=== PATIENT | female | born 1935 | race Caucasian/White ===

== ENCOUNTER 2019-09-14 19:26 | Inpatient (IN) | payer MEDICARE ==
[2019-09-14] MEDS ORDERED: Artificial Tear Sol 15 ML BOT EA EYE PRN (20:54)
[2019-09-14] MEDS: Senokot S 8.6-50 MG TAB PO SCH (21:52)
[2019-09-14] MEDS: Enoxaparin Sodium 40 MG/0.4 ML SYRINGE SC SCH (21:56)
[2019-09-14] MEDS: Aspirin 325 MG TAB PO SCH (21:56)
[2019-09-14] MEDS: Acetaminophen 500 MG TAB PO SCH (21:56)
[2019-09-14] MEDS: Famotidine 20 MG TAB PO SCH (21:56)
[2019-09-14] MEDS: DorzolamidE/Timolol 2%/0.5% Ophth Soln 10 ml Bottle EA EYE SCH (21:56)
[2019-09-14 22:23] VITALS: BMI 19.4
[2019-09-15] MEDS: Acetaminophen 500 MG TAB PO SCH ×4 (05:31→23:52)
[2019-09-15] MEDS: Levothyroxine Sodium 25 MCG TAB PO SCH (05:31)
[2019-09-15 06:45] LABS: Anisocytosis SLIGHT = 6-15 cells (100X) (0-5/hpf); Band 14 % (5-11); Eosinophils 3 % (0-10); Hemoglobin 14.3 g/dL (12.0-16.0); Lymphocytes 19 % (21-51); MDiff Complete? YES; Mean Corpuscular HGB CONC 29.7 g/dL (32.0-36.0); Mean Corpuscular Hemoglobin 27.3 pg (27.0-31.0); Mean Corpuscular Volume 92.2 fL (78.0-98.0); Mean Platelet Volume 10.2 fL (7.4-10.4); Monocytes 10 % (0-10); Neutrophil 53 % (42-75); Platelet Count 188 thou/uL (130-400); Platelet Morphology Comment Appears Adequate; Polychromasia SLIGHT = 2-3 cells (100X) (0-2/hpf); Red Blood Cell (RBC) Count 5.22 mill/uL (4.20-5.40); White Blood Cell (WBC) Count 7.7 thou/uL (4.8-10.8)
[2019-09-15 07:41] LABS: ALT (SGPT) 28 U/L (8-55); AST (SGOT) 46 U/L (5-34); Albumin 3.5 g/dL (3.4-4.8); Alkaline Phosphatase 65 U/L (40-110); Anion Gap 16 mmol/L (10-20); BUN (Urea Nitrogen) 11 mg/dL (9.8-20.1); Bilirubin, Total 0.7 mg/dL (0.2-1.2); Calc. Creatinine Clearance 59 mL/min (70-130); Carbon Dioxide 20 mmol/L (23-31); Chloride 98 mmol/L (98-107); Estimated GFR-MDRD Greater than 90; Globulin 2.5 g/dL (2.4-3.5); Glucose 92 mg/dL (83-110); Potassium 3.4 mmol/L (3.5-5.1); Sodium 131 mmol/L (136-145)
[2019-09-15] MEDS: Polyethylene Glycol 3350 17 GM Packet PO SCH (08:31)
[2019-09-15] MEDS: Aspirin 325 MG TAB PO SCH ×2 (08:31→21:19)
[2019-09-15] MEDS: Multivitamin W/ Minerals 1 TAB PO SCH (08:31)
[2019-09-15] MEDS: Famotidine 20 MG TAB PO SCH ×2 (08:32→21:19)
[2019-09-15] MEDS: Senokot S 8.6-50 MG TAB PO SCH ×2 (08:32→21:20)
[2019-09-15] MEDS: DorzolamidE/Timolol 2%/0.5% Ophth Soln 10 ml Bottle EA EYE SCH ×2 (08:34→21:19)
[2019-09-15] MEDS: Enoxaparin Sodium 40 MG/0.4 ML SYRINGE SC SCH ×2 (08:35→21:19)
[2019-09-15] MEDS ORDERED: Potassium Chloride 20 MEQ TAB PO SCH (09:15)
--- NOTE | 2019-09-15 10:09 | HP ---
PRINCIPAL DIAGNOSES: Right-sided femoral neck fracture, status post surgical pinning with resolving encephalopathy and COVID pneumonia for therapy. BRIEF HISTORY: This is an 83-year-old female, who sustained a fall at her living facility and noticed right hip pain. She was evaluated and admitted to the hospital with right femoral neck fracture and underwent surgical pinning. This was done on August 27. She is on partial weightbearing. She apparently did develop respiratory failure postoperatively and her COVID test came back positive around the August 29. Chest x-ray confirmed bilateral infiltrates and she was on Remdesivir, steroids, and tocilizumab. She has been weaned off her oxygen and she had a repeat swab done on the September 11 and it was negative. She has been afebrile. Currently, she also was noticed to be hyponatremic, which is chronic as long as her sodium stays around 129 to 130 that is pretty normal for her according to old records. She also was noticed to have hypokalemia, which was replaced. She is up in bed and denies any complaints. She apparently pulled her Tyler catheter out last night. She has been voiding, so I advised nursing to do bladder scans and monitor her output. 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 No family at bedside. PAST MEDICAL HISTORY: 1. Hypertension. 2. Hypothyroidism. 3. Dyslipidemia. 4. Possible gastroesophageal reflux disease. 5. Dementia. 6. Very poor vision. PAST SURGICAL HISTORY: 1. Hysterectomy. 2. section. 3. Bladder surgery. 4. Recent right femoral neck fracture pinning. PSYCHOSOCIAL HISTORY: She lives at an independent living facility. Denies any current tobacco, alcohol, or recreational drug abuse. FAMILY HISTORY: Noncontributory to current admission. ALLERGIES: SHE IS APPARENTLY ALLERGIC TO PENICILLIN AND PNEUMOCOCCAL VACCINE. REVIEW OF SYSTEMS: GENERAL: No fever, chills, or myalgia. CARDIOVASCULAR SYSTEM: Denies any chest pain, shortness of breath, palpitations, PND, orthopnea, or pedal edema. RESPIRATORY SYSTEM: Occasional cough. Denies any pleuritic-type chest pain. Denies any hemoptysis. GASTROINTESTINAL SYSTEM: Denies any nausea, vomiting, diarrhea, constipation, hematemesis, melena, or hematochezia. GENITOURINARY SYSTEM: Denies any frequency, urgency, dysuria, or hematuria. She pulled her Tyler catheter out and she apparently is voiding in her diaper. EXTREMITIES: Improving right hip and leg pain. HEENT: Denies any changes with her speech, vision, hearing, or swallowing. She has chronic poor vision. SKIN: Denies any rash. PHYSICAL EXAMINATION: GENERAL: This is a pleasant 83-year-old female, who is up in bed and being fed. She denies any questions or concerns. When I introduced myself, she acted like she knew me well. VITAL SIGNS: She is afebrile, heart rate 89, respirations 20, oxygen saturation 92% on room air, blood pressure 114/56. HEENT: Normocephalic and atraumatic. NECK: No JVD, thyromegaly, cervical lymphadenopathy, or throat exudates. No carotid bruits. CARDIOVASCULAR SYSTEM: S1 and S2 plus. RESPIRATORY SYSTEM: Normal vesicular breath sounds with occasional rhonchi. ABDOMEN: Soft, nontender. Bowel sounds heard in all quadrants. EXTREMITIES: Without cyanosis or clubbing. Trace right leg edema. Right hip incision is healthy. CENTRAL NERVOUS SYSTEM: Awake and responsive. Not oriented to place or person. Grossly nonfocal except for generalized weakness. LABORATORY DATA: Show white count of 7.7, H and H of 14.3 and 48.1. Chemistry shows a sodium of 131, potassium is slightly low at 3.4, BUN and creatinine are 11 and 0.59. IMPRESSION: 1. Recent fall and right hip fracture, status post surgical fixation. 2. Recent COVID pneumonia with time since diagnosis of 14 days, asymptomatic and afebrile for the last 3 days without any antipyretics per documentation and her COVID test was negative on the . 3. Hypertension. 4. Dyslipidemia. 5. Hypothyroidism. 6. Hypokalemia. 7. Hyponatremia. 8. Possible dementia. PLAN: 1. Continue current medications. 2. Monitor respiratory status. 3. Orthopedic precautions. 4. Heart-healthy diet. 5. DVT prophylaxis with PlexiPulses. 6. Decubitus precautions. 7. Stress ulcer prophylaxis. 8. Fall precautions. 9. Monitor cognition. 10. PT/OT eval and treat. 11. Replace potassium. 12. Routine laboratory values. 13. No family at bedside. Job ID: [id number]
[2019-09-15] MEDS: Bupropion 150 MG XL TAB PO SCH (12:42)
[2019-09-15] MEDS: TACROLIMUS EA EYE SCH ×3 (12:42→21:19)
[2019-09-16] MEDS: Acetaminophen 500 MG TAB PO SCH ×4 (05:36→23:08)
[2019-09-16] MEDS: Levothyroxine Sodium 25 MCG TAB PO SCH (05:36)
[2019-09-16] MEDS: Famotidine 20 MG TAB PO SCH ×2 (10:01→20:46)
[2019-09-16] MEDS: Multivitamin W/ Minerals 1 TAB PO SCH (10:01)
[2019-09-16] MEDS: Senokot S 8.6-50 MG TAB PO SCH ×2 (10:01→20:46)
[2019-09-16] MEDS: Aspirin 325 MG TAB PO SCH ×2 (10:01→20:45)
[2019-09-16] MEDS: Polyethylene Glycol 3350 17 GM Packet PO SCH (10:02)
[2019-09-16] MEDS: TACROLIMUS EA EYE SCH ×4 (10:02→20:46)
[2019-09-16] MEDS: DorzolamidE/Timolol 2%/0.5% Ophth Soln 10 ml Bottle EA EYE SCH ×2 (10:02→20:46)
[2019-09-16] MEDS: Enoxaparin Sodium 40 MG/0.4 ML SYRINGE SC SCH ×2 (10:02→20:45)
[2019-09-16] MEDS: DEXAMETHASONE 0.1% EA EYE SCH (10:09)
[2019-09-16] MEDS: Bupropion 150 MG XL TAB PO SCH (12:22)
--- NOTE | 2019-09-16 17:58 | PRG ---
DATE OF SERVICE: 09/16/2019 SUBJECTIVE: Ms. Tsai is resting in bed. She apparently has been more agitated this morning. She is now sleeping. Her daughter is in the room, and I had a long discussion with her daughter. She brought in a couple of her eye drops, and 2 of them we have placed as home medications. The third one has , so we are going to hold off on that. She is also not eating or drinking, and daughter states that she has lost about 20 pounds. We will add Ensure t.i.d. OBJECTIVE: VITAL SIGNS: She is afebrile. Heart rate 86, respirations 20, oxygen saturation 92% on room air, blood pressure 152/67. CARDIOVASCULAR: S1 and S2 plus. RESPIRATORY: Normal vesicular breath sounds. ABDOMEN: Soft and nontender. Bowel sounds heard in all quadrants. EXTREMITIES: Without cyanosis or clubbing. Right hip incision with dressing. CENTRAL NERVOUS SYSTEM: Pleasantly confused. IMPRESSION: 1. Hypertension. 2. Hypothyroidism. 3. Dyslipidemia. 4. Mild dementia with behavioral issues. 5. Poor vision. 6. Right hip fracture, status post surgical fixation. 7. Resolved COVID-19 infection. PLAN: 1. Continue current medications. 2. Orthopedic precautions and incision care. 3. Encourage p.o. intake. 4. Ensure supplements t.i.d. 5. DVT prophylaxis. 6. Decubitus precaution. 7. Stress ulcer prophylaxis. 8. Poor p.o. intake. 9. Recheck laboratory values. 10. PT/OT. Job ID: [id number]
[2019-09-17] MEDS: Levothyroxine Sodium 25 MCG TAB PO SCH (05:23)
[2019-09-17] MEDS: Acetaminophen 500 MG TAB PO SCH ×4 (05:23→23:31)
[2019-09-17] MEDS: Polyethylene Glycol 3350 17 GM Packet PO SCH (08:39)
[2019-09-17] MEDS: Enoxaparin Sodium 40 MG/0.4 ML SYRINGE SC SCH ×2 (08:39→20:16)
[2019-09-17] MEDS: Famotidine 20 MG TAB PO SCH ×2 (08:40→20:16)
[2019-09-17] MEDS: Aspirin 325 MG TAB PO SCH ×2 (08:40→20:15)
[2019-09-17] MEDS: Senokot S 8.6-50 MG TAB PO SCH ×2 (08:40→20:26)
[2019-09-17] MEDS: Multivitamin W/ Minerals 1 TAB PO SCH (08:41)
[2019-09-17] MEDS: TACROLIMUS EA EYE SCH ×4 (08:41→20:16)
[2019-09-17] MEDS: DEXAMETHASONE 0.1% EA EYE SCH (08:41)
[2019-09-17] MEDS: DorzolamidE/Timolol 2%/0.5% Ophth Soln 10 ml Bottle EA EYE SCH ×2 (08:44→20:16)
[2019-09-17] MEDS: Bupropion 150 MG XL TAB PO SCH (12:10)
--- NOTE | 2019-09-17 12:32 | PRG ---
DATE OF SERVICE: 09/17/2019 SUBJECTIVE: Ms. Tsai is up in bed. She is pleasantly confused. Her spouse is in the room. She apparently takes Ambien at home 5 mg at bedtime and then couple of hours later may take another 5. She is not sleeping. OBJECTIVE: CARDIOVASCULAR SYSTEM: S1 and S2 plus. RESPIRATORY SYSTEM: Normal vesicular breath sounds. ABDOMEN: Soft and nontender. Bowel sounds heard in all quadrants. EXTREMITIES: Without cyanosis or clubbing. Hip incision is healthy. VITAL SIGNS: She is afebrile, heart rate 75, respirations 18, oxygen saturation 93% on room air, blood pressure 116/81. IMPRESSION: 1. Right hip fracture, status post surgical fixation. 2. Resolved COVID pneumonia. 3. Hypertension. 4. Hypothyroidism. 5. Dyslipidemia. 6. Poor vision. 7. Gastroesophageal reflux disease. 8. Possible dementia. 9. Insomnia. PLAN: 1. Continue current medications. 2. Nutritional support. 3. Orthopedic precautions. 4. Incision care. 5. Order Ambien. 6. Physical therapy. 7. Routine laboratory values. 8. Discussed with the patient and in detail. All questions were answered. Job ID: [id number]
[2019-09-17] MEDS: Zolpidem Tartrate 5 MG TAB PO SCH (20:16)
[2019-09-17] MEDS ORDERED: Zolpidem Tartrate 5 MG TAB PO SCH (22:00)
[2019-09-18] MEDS: Levothyroxine Sodium 25 MCG TAB PO SCH (05:36)
[2019-09-18] MEDS: Acetaminophen 500 MG TAB PO SCH ×4 (05:36→23:24)
[2019-09-18] MEDS: Aspirin 325 MG TAB PO SCH ×2 (09:31→20:52)
[2019-09-18] MEDS: Senokot S 8.6-50 MG TAB PO SCH ×2 (09:31→20:52)
[2019-09-18] MEDS: Multivitamin W/ Minerals 1 TAB PO SCH (09:32)
[2019-09-18] MEDS: Enoxaparin Sodium 40 MG/0.4 ML SYRINGE SC SCH ×2 (09:32→20:52)
[2019-09-18] MEDS: Polyethylene Glycol 3350 17 GM Packet PO SCH (09:32)
[2019-09-18] MEDS: Famotidine 20 MG TAB PO SCH ×2 (09:32→20:52)
[2019-09-18] MEDS: DorzolamidE/Timolol 2%/0.5% Ophth Soln 10 ml Bottle EA EYE SCH ×2 (09:32→20:53)
[2019-09-18] MEDS: DEXAMETHASONE 0.1% EA EYE SCH (09:33)
[2019-09-18] MEDS: TACROLIMUS EA EYE SCH ×4 (09:34→21:06)
[2019-09-18] MEDS: Bupropion 150 MG XL TAB PO SCH (12:49)
--- NOTE | 2019-09-18 13:52 | PRG ---
DATE OF SERVICE: 09/18/2019 SUBJECTIVE: Ms. Tsai is resting in bed and remains confused. Her daughter is in the room. She apparently is not eating or drinking much. She is orthostatic. Family is agreeable for IV fluids, but they also understand that it is a short-term fix. Daughter also wants her to be DNR. She understands that if she stops breathing or if her heart goes into any irregular rhythm or stops breathing, we are not going to do any medicines, chest compressions, or artificial means of breathing. She also wondered if quality control engineer comes here and advise her that we unfortunately do not have an quality control engineer on-staff. She does not want to try any medicines for agitation as the patient had a bad experience with Seroquel. OBJECTIVE: VITAL SIGNS: The patient is afebrile. Heart rate is 99, blood pressure is fluctuating from 128/55 to 73/44, and oxygen saturation is 96% on room air. CARDIOVASCULAR SYSTEM: S1 and S2 plus. RESPIRATORY SYSTEM: Normal vesicular breath sounds. ABDOMEN: Soft, nontender, scaphoid. Bowel sounds heard in all quadrants. EXTREMITIES: Without cyanosis or clubbing. Right hip incision with dressing. CENTRAL NERVOUS SYSTEM: Pleasantly confused. Otherwise, generalized weakness and nonfocal. IMPRESSION: 1. Loss of vision to her eye, family states that it is due to extremely dry eyes. They do not know other diagnosis. 2. Right hip fracture, status post surgical fixation. 3. Resolved COVID pneumonia. 4. Hypertension. 5. Hypothyroidism. 6. Dyslipidemia. 7. Gastroesophageal reflux disease. 8. Possible dementia. PLAN: 1. Continue current medications. 2. Start IV fluids, D5 normal saline at 100 mL an hour. 3. Recheck CBC, BMP tomorrow. 4. I advised nursing to make sure they wrap the IV line, so the patient does not yank it out. 5. DNR status per daughter's request. 6. Orthopedic precautions and incision care. 7. DVT prophylaxis with PlexiPulses. 8. Decubitus precautions. 9. Stress ulcer prophylaxis. 10. Physical therapy as tolerated. Job ID: [id number]
[2019-09-18] MEDS: Simethicone Chewable 80 MG TAB PO PRN (15:14)
[2019-09-18] MEDS: Dextrose 5 % And 0.9 % NaCl 1,000 ML IV SCH ×2 (16:01→23:24)
[2019-09-18] MEDS: Zolpidem Tartrate 5 MG TAB PO SCH (20:52)
[2019-09-18] MEDS: Zolpidem Tartrate 5 MG TAB PO PRN (23:24)
[2019-09-19] MEDS: Levothyroxine Sodium 25 MCG TAB PO SCH (05:20)
[2019-09-19] MEDS: Acetaminophen 500 MG TAB PO SCH ×3 (05:20→18:14)
[2019-09-19 05:46] LABS: Anion Gap 13 mmol/L (10-20); BUN (Urea Nitrogen) 13 mg/dL (9.8-20.1); Calc. Creatinine Clearance 61 mL/min (70-130); Calcium 7.6 mg/dL (7.8-10.44); Carbon Dioxide 17 mmol/L (23-31); Chloride 106 mmol/L (98-107); Estimated GFR-MDRD Greater than 90; Glucose 111 mg/dL (83-110); Potassium 3.3 mmol/L (3.5-5.1); Sodium 133 mmol/L (136-145)
[2019-09-19 05:56] LABS: Hemoglobin 13.2 g/dL (12.0-16.0); Mean Corpuscular HGB CONC 29.6 g/dL (32.0-36.0); Mean Corpuscular Hemoglobin 28.1 pg (27.0-31.0); Mean Corpuscular Volume 94.7 fL (78.0-98.0); Mean Platelet Volume 12.9 fL (7.4-10.4); Platelet Count 158 thou/uL (130-400); RBC Distribution Width 18.6 % (11.5-14.5); White Blood Cell (WBC) Count 6.2 thou/uL (4.8-10.8)
[2019-09-19 06:00] LABS: Band 16 % (5-11); Eosinophils 4 % (0-10); Lymphocytes 30 % (21-51); MDiff Complete? YES; Manual Diff?? YES; Monocytes 2 % (0-10); Neutrophil 47 % (42-75)
[2019-09-19 06:01] LABS: Hypochromia SLIGHT = 6-15 cells (100X) (0-5/hpf)
[2019-09-19] MEDS: Enoxaparin Sodium 40 MG/0.4 ML SYRINGE SC SCH ×2 (08:41→21:21)
[2019-09-19] MEDS: DorzolamidE/Timolol 2%/0.5% Ophth Soln 10 ml Bottle EA EYE SCH ×2 (08:41→21:23)
[2019-09-19] MEDS: Famotidine 20 MG TAB PO SCH ×2 (08:43→21:22)
[2019-09-19] MEDS: Senokot S 8.6-50 MG TAB PO SCH ×2 (08:43→21:22)
[2019-09-19] MEDS: TACROLIMUS EA EYE SCH ×4 (08:43→21:29)
[2019-09-19] MEDS: Multivitamin W/ Minerals 1 TAB PO SCH (08:43)
[2019-09-19] MEDS: Polyethylene Glycol 3350 17 GM Packet PO SCH (08:43)
[2019-09-19] MEDS: Aspirin 325 MG TAB PO SCH ×2 (08:43→21:21)
[2019-09-19] MEDS: DEXAMETHASONE 0.1% EA EYE SCH (08:43)
[2019-09-19] MEDS: Dextrose 5 % And 0.9 % NaCl 1,000 ML IV SCH ×2 (09:33→21:35)
[2019-09-19] MEDS: Simethicone Chewable 80 MG TAB PO PRN (10:15)
[2019-09-19] MEDS: Bupropion 150 MG XL TAB PO SCH (12:40)
--- NOTE | 2019-09-19 13:55 | PRG ---
DATE OF SERVICE: 09/19/2019 SUBJECTIVE: Ms. Tsai is resting in bed, remains confused. Her daughter is in the room. Apparently, she did better with therapy today with the IV fluids. I did advise them that we will continue it for one more day, and then, we can stop it and see how she does. We will order JASSON hose, so that maybe it will help with her blood pressure. OBJECTIVE: VITAL SIGNS: She is afebrile. No orthostasis today. Blood pressure was 106/54 to 90/51 with a pulse of 71 to 76. CARDIOVASCULAR: S1 and S2 plus. RESPIRATORY: Normal vesicular breath sounds. ABDOMEN: Soft and nontender. Bowel sounds heard in all quadrants. EXTREMITIES: Without cyanosis or clubbing. CENTRAL NERVOUS SYSTEM: Generalized weakness and cognitive impairment. IMPRESSION: 1. Right hip fracture, status post surgical fixation. 2. Insomnia. 3. Possible dementia. 4. Hypertension. 5. Hypothyroidism. 6. Poor p.o. intake. 7. Gastroesophageal reflux disease. 8. Resolved orthostasis and poor vision. PLAN: 1. Continue IV fluids for one more day, but change it to D5 normal saline with 40 mEq of KCl, and if that is not available, then we will just give her potassium 40 mEq by mouth one-time dose. 2. Knee-high JASSON hose. 3. Continue Lovenox for DVT prophylaxis. 4. Recheck laboratory values. 5. Physical therapy. 6. Encourage p.o. intake. 7. Discussed with the patient and daughter in detail. Job ID: [id number]
[2019-09-19] MEDS: Zolpidem Tartrate 5 MG TAB PO SCH (21:20)
[2019-09-20] MEDS: Zolpidem Tartrate 5 MG TAB PO PRN ×2 (00:12→23:57)
[2019-09-20] MEDS: Acetaminophen 500 MG TAB PO SCH ×5 (00:12→23:05)
[2019-09-20] MEDS ORDERED: Sodium Chloride 0.9% 0 ML ONE (00:13)
[2019-09-20] MEDS ORDERED: Sodium Chloride 0.9% 10 ML ONE (01:47)
[2019-09-20] MEDS: Levothyroxine Sodium 25 MCG TAB PO SCH (05:18)
[2019-09-20] MEDS: Dextrose 5 % And 0.9 % NaCl 1,000 ML IV SCH ×2 (05:25→11:18)
[2019-09-20] MEDS: Multivitamin W/ Minerals 1 TAB PO SCH (08:39)
[2019-09-20] MEDS: Ondansetron ODT 4 MG TAB PO PRN (08:39)
[2019-09-20] MEDS: Polyethylene Glycol 3350 17 GM Packet PO SCH (08:39)
[2019-09-20] MEDS: Famotidine 20 MG TAB PO SCH ×2 (08:39→21:07)
[2019-09-20] MEDS: Aspirin 325 MG TAB PO SCH ×2 (08:39→21:07)
[2019-09-20] MEDS: Senokot S 8.6-50 MG TAB PO SCH ×2 (08:39→21:08)
[2019-09-20] MEDS: Enoxaparin Sodium 40 MG/0.4 ML SYRINGE SC SCH ×2 (08:39→21:07)
[2019-09-20] MEDS: TACROLIMUS EA EYE SCH ×4 (08:40→21:06)
[2019-09-20] MEDS: DEXAMETHASONE 0.1% EA EYE SCH (08:40)
[2019-09-20] MEDS: DorzolamidE/Timolol 2%/0.5% Ophth Soln 10 ml Bottle EA EYE SCH ×2 (08:40→21:07)
[2019-09-20] MEDS: Bupropion 150 MG XL TAB PO SCH (11:16)
--- NOTE | 2019-09-20 13:33 | PRG ---
DATE OF SERVICE: 09/20/2019 SUBJECTIVE: Ms. Tsai is up in bed. She is getting ready to eat lunch. Her spouse is in the room. Apparently, family wants her evaluated for inpatient rehabilitation as it is closer to their home. I really do not think she qualifies, but we have put in a consult. I also advised nursing to stop her IV fluids. OBJECTIVE: VITAL SIGNS: She is afebrile. Heart rate 82, respirations 20, oxygen saturation 95% on room air, blood pressure 138/64. CARDIOVASCULAR: S1 and S2 plus. RESPIRATORY: Normal vesicular breath sounds. ABDOMEN: Soft and nontender. Bowel sounds heard in all quadrants. EXTREMITIES: Without cyanosis or clubbing. CENTRAL NERVOUS SYSTEM: Generalized weakness and cognitive deficits. IMPRESSION: 1. Right hip fracture, status post surgical fixation. 2. Hypertension. 3. Hypothyroidism. 4. Gastroesophageal reflux disease. 5. Resolved orthostasis. PLAN: 1. Continue current medications, but stop IV fluids. 2. Continue knee-high JASSON hose. 3. Inpatient rehabilitation per family request. 4. Continue Lovenox for DVT prophylaxis. 5. Physical therapy. 6. Encourage p.o. intake. 7. Routine laboratory values. Job ID: [id number]
[2019-09-20] MEDS: Zolpidem Tartrate 5 MG TAB PO SCH (21:05)
[2019-09-21] MEDS: Levothyroxine Sodium 25 MCG TAB PO SCH (04:59)
[2019-09-21] MEDS: Acetaminophen 500 MG TAB PO SCH ×3 (05:00→17:33)
[2019-09-21 08:13] VITALS: TEMP 97.3
[2019-09-21] MEDS: Senokot S 8.6-50 MG TAB PO SCH (08:34)
[2019-09-21] MEDS: Famotidine 20 MG TAB PO SCH (08:34)
[2019-09-21] MEDS: Aspirin 325 MG TAB PO SCH (08:34)
[2019-09-21] MEDS: Multivitamin W/ Minerals 1 TAB PO SCH (08:35)
[2019-09-21] MEDS: DorzolamidE/Timolol 2%/0.5% Ophth Soln 10 ml Bottle EA EYE SCH (08:36)
[2019-09-21] MEDS: Enoxaparin Sodium 40 MG/0.4 ML SYRINGE SC SCH (08:36)
[2019-09-21] MEDS: Polyethylene Glycol 3350 17 GM Packet PO SCH (08:36)
[2019-09-21] MEDS: TACROLIMUS EA EYE SCH ×3 (08:40→17:33)
[2019-09-21] MEDS: DEXAMETHASONE 0.1% EA EYE SCH (08:40)
[2019-09-21] MEDS: Ondansetron ODT 4 MG TAB PO PRN ×2 (09:30→15:53)
[2019-09-21] MEDS: Bupropion 150 MG XL TAB PO SCH (11:40)
--- NOTE | 2019-09-21 13:53 | PRG ---
DATE OF SERVICE: 09/21/2019 SUBJECTIVE: Ms. Tsai is resting in bed. Her caregiver is in the room. She apparently ate well. She is not doing well with therapy according to the caregiver. I encouraged the patient to participate, so that she can get better and go home. Awaiting evaluation by inpatient rehab. Physical Therapy recommended speech therapy for cognitive evaluation. We do know that the patient does have cognitive deficits. She is not showing any signs of dysphagia, but I think they want to be safe. We will go on and place the order. OBJECTIVE: VITAL SIGNS: She is afebrile. Heart rate is 81, respirations are 20, oxygen saturation 97%, blood pressure 129/55 lying down and 93/51. IMPRESSION: 1. Right hip fracture, status post surgical fixation. 2. Possible cognitive deficits. 3. Blindness or very poor vision in both eyes per family. 4. Hypothyroidism. 5. Gastroesophageal reflux disease. PLAN: 1. Continue current medications. 2. Encourage p.o. intake and fluids. 3. Lovenox for DVT prophylaxis. 4. Continue Synthroid. 5. Eye drops. 6. Physical therapy as tolerated. 7. Speech therapy eval. 8. Discussed with caregiver. Job ID: [id number]
[2019-09-21 14:41] VITALS: BP 125/59
== END 2019-09-21 18:42 | DRG 560 ==
LOC: NAV ACUTE 19:26
PROVIDERS: ADMIT Internal Medicine; ATTEND Internal Medicine
DX: Z47.89 Encounter for other orthopedic aftercare (principal); E87.1 Hypo-osmolality and hyponatremia; E87.6 Hypokalemia; I10 Essential (primary) hypertension; E03.9 Hypothyroidism, unspecified; E78.5 Hyperlipidemia, unspecified; K21.9 Gastro-esophageal reflux disease without esophagitis; R41.89 Other symptoms and signs involving cognitive functions and awareness; F03.90 Unspecified dementia, unspecified severity, without behavioral disturbance, psychotic disturbance, mood disturbance, and anxiety; G47.00 Insomnia, unspecified; S72.091D Other fracture of head and neck of right femur, subsequent encounter for closed fracture with routine healing; Z90.710 Acquired absence of both cervix and uterus; Z88.0 Allergy status to penicillin; Z88.7 Allergy status to serum and vaccine
CPT/HCPCS: 80048; 80053; 85025; 87324; 87449; J1650; J7042; Q0162